=== PATIENT | female | born 2005 | race Caucasian/White ===

== ENCOUNTER 2025-06-02 19:46 | Emergency (ER) | payer BC, MEDICAID, SELFPAY ==
--- NOTE | ~2025-06-02 | US_ITS ---
EXAMINATION: US pelvic complete INDICATION: Pelvic pain Comparison:No prior studies for comparison. TECHNIQUE: Multiple transabdominal sonographic images of the pelvis performed. FINDINGS: The uterus measures 7.1 x 3.9 x 5.2 cm. The endometrial complex measures 4 mm. The right ovary measures 3 x 3 x 2.6 cm and the left ovary measures 3.8 x 2.5 x 2.3 cm. There are small follicles in each ovary. Normal doppler signal in both ovaries. There is no free fluid in the pelvis. There are no abnormal masses seen on either side. IMPRESSION: 1. Unremarkable pelvic ultrasound. Reviewed, dictated and finalized at location O.
[2025-06-02 20:07] VITALS: BP 115/71; PULSE 91; RESP 18; TEMP 36.7; O2SAT 100
[2025-06-02 20:36] LABS: BEDSIDEPREGUCG Negative (Negative)
[2025-06-02 20:47] LABS: Add Urine Microscopic? YES; Appearance Urine Clear (Clear); Glucose Urine UA Negative (Negative); Leukocyte Esterase Ur 1+ LEU/UL (Negative); Nitrate Urine Negative (Negative); Non Pathogenic Casts 0-2; Specific Grav Ur 1.027 (1.001-1.035)
--- NOTE | 2025-06-02 21:10 | PC.NURSE ---
Pt wheeled to triage desk by visitor stating that she is still bleeding heavily, fully saturating 3 pads since arriving 1.5 hrs ago. Will discuss with charge nurse to prioritize based off acuity.
--- NOTE | 2025-06-02 22:09 | ED_ITS ---
HPI - Female Genitourinary General Chief complaint: Vaginal Bleeding Stated complaint: Abnormal Vaginal bleeding Time Seen by Provider: 06/02/25 21:52 History of Present Illness HPI Narrative: This is a 19-year-old female with history of PCOS, endometriosis with heavy menstrual bleeding and presents to the ED for abdominal pain and vaginal bleeding. Patient states that she started her period about 5 or 6 hours ago and it was heavier than her usual period . She states the pain was worsened for episodes prompting her to come to the ED. She has required transfusions in the past most recently a year ago. Patient just moved here has not established with gynecology. Denies fevers, chills, nausea, vomiting, chest pain, shortness of breath. Related Data Allergies Allergy/AdvReac Type Severity Reaction Status Date / Time No Known Allergies Allergy Verified 06/02/25 23:12 Review of Systems 2 Review of Systems: Gen.: Denies fevers or chills Eyes: Denies eye pain or visual change ENT: Denies congestion Respiratory: Denies shortness of breath or cough CV: Denies chest pain or palpitations GI: As per HPI as per HPI Musculoskeletal: Denies back pain or muscle pain Neuro: Denies numbness, tingling, weakness or focal weakness Skin: Denies rash Except as documented, all other systems reviewed and negative Exam 2 Narrative: APPEARANCE: No acute distress, nontoxic, resting in bed EYES: EOMI HEENT: Normocephalic, atraumatic, OMM RESPIRATORY: No respiratory distress Clear to auscultation bilaterally with no rhonchi wheezing or rales. CARDIOVASCULAR: Regular rate and rhythm without murmurs rubs or gallops. ABDOMINAL: Soft, mild suprapubic tenderness to palpation MUSCULOSKELETAl: Moves all extremities. No clubbing, cyanosis or edema. NEURO: Awake and alert. Following commands, speech normal, no focal deficits SKIN:: Warm, dry. No rashes lesions or abrasions PSYCHIATRIC: Normal affect/mood, Course Vital Signs Vital signs: Vital Signs Temperature 98.0 F 06/02/25 20:07 Pulse Rate 91 06/02/25 20:07 Respiratory Rate 18 06/02/25 20:07 Blood Pressure 115/71 06/02/25 20:07 Pulse Oximetry 100 06/02/25 20:07 Oxygen Delivery Room Air 06/02/25 20:07 Temperature 97.9 F 06/02/25 23:51 Pulse Rate 68 06/02/25 23:51 Respiratory Rate 18 06/02/25 23:51 Blood Pressure 108/64 06/02/25 23:51 Pulse Oximetry 99 06/02/25 23:51 Oxygen Delivery Room Air 06/02/25 20:07 MDM - Female Genitourinary MDM Narrative Medical decision making narrative: 19-year-old female who presents to the ED for suprapubic abdominal pain with vaginal bleeding. Symptoms are consistent her prior dysmenorrhea due to PCOS and endometriosis. Abdomen was soft with mild suprapubic tenderness. She had a mild anemia 11.4, remaining labs are without significant abnormalities. Pelvic ultrasound was obtained and showed no acute process. UA consistent with her menstrual cycle. Patient was initially given Toradol with minimal improvement in her symptoms. She was subsequently given oxycodone and morphine with near resolution of her symptoms. She has not established with gynecology. So she will be given a referral to them and advised follow-up next week. Patient was agreeable to this plan. Given strict return precautions. Differential Diagnosis Differential diagnosis: Likely dysmenorrhea and other (anemia, UTI, miscarriage) Medical Records Attestation: I reviewed the patient's medical records. Lab Data Attestation: I reviewed the patient's lab results. 06/02/25 22:04 06/02/25 22:04 Labs: Lab Results 06/02/25 06/02/25 06/02/25 Range/Units 20:31 20:32 21:25 WBC (4.5-10.0) K/mm3 RBC (4.2-5.4) M/mm3 Hgb (12.0-15.0) g/dL Hct (37.0-47.0) % MCV (80-100) fl MCH (26-34) pg MCHC (32-36) g/dl RDW (11.5-14.5) % Plt Count (150-375) k/mm3 MPV (7.4-10.4) fl Immature Gran % (Auto) (0-0.5) % Neut % (Auto) (45.5-73.1) % Lymph % (Auto) (18.3-44.2) % [place] % (Auto) (2.6-8.5) % Eos % (Auto) (0-4.4) % Baso % (Auto) (0.2-1.2) % Lymph # (Auto) (0.9-3.2) K/mm3 [place] # (Auto) (0.1-0.6) K/mm3 Eos # (Auto) (0-0.3) K/mm3 Baso # (Auto) (0.0-0.1) K/mm3 Abs Immat Gran (auto) (0.00-0.031) K/mm3 Absolute Neuts (auto) (1.3-6.7) K/mm3 Absolute Nucleated RBC (0.0-0.012) K/mm3 Nucleated RBC % (0.0-0.2) % Sodium (137-145) mmol/L Potassium (3.4-5.0) mmol/L Chloride (98-107) mmol/L Carbon Dioxide (22-30) mmol/L Anion Gap (4-12) mmol/L BUN (7-17) mg/dL Creatinine (0.7-1.0) mg/dL Estim Creat Clear Calc Estimated GFR (59 - ) Glucose (65-110) mg/dL Calcium (8.4-10.2) mg/dL Total Bilirubin (0.2-1.3) mg/dL AST (14-36) U/L ALT (6-35) U/L Alkaline Phosphatase (38-126) U/L Total Protein (6.3-8.2) g/dL Albumin (3.5-5.1) g/dL Urine Color Yellow (Yellow) Urine Appearance Clear (Clear) Urine pH 6.0 (5.0-9.0) Ur Specific [place] 1.027 (1.001-1.035) Urine Protein 1+ H (Negative) mg/dL Urine Glucose (UA) Negative (Negative) mg/dL Urine Ketones Negative (Negative) mg/dL Ur Blood (Man) 3+ H (Negative) Urine Nitrate Negative (Negative) Urine Bilirubin Negative (Negative) Urine Urobilinogen 0.2 (<2.0) mg/dL Leukocyte Esterase Rfl 1+ H (Negative) MIKEY/UL Urine RBC >100 H (0-2) /hpf Urine WBC 6-10 H (0-3) /hpf Ur Squamous Epith Cells None seen (Few) /hpf Urine Bacteria Rare /hpf Urine Casts 0-2 POC Urine HCG, Qual Negative (Negative) Blood Type O Positive Antibody Screen Negative Screen TNP Baby's Blood Type Not Reportable Baby's ANABEL Not Reportable Doses of RhIg Required 0 06/02/25 Range/Units 22:04 WBC 10.4 H (4.5-10.0) K/mm3 RBC 4.03 L (4.2-5.4) M/mm3 Hgb 11.4 L (12.0-15.0) g/dL Hct 35.0 L (37.0-47.0) % MCV 86.8 (80-100) fl MCH 28.3 (26-34) pg MCHC 32.6 (32-36) g/dl RDW 11.9 (11.5-14.5) % Plt Count 331 (150-375) k/mm3 MPV 9.2 (7.4-10.4) fl Immature Gran % (Auto) 0.3 (0-0.5) % Neut % (Auto) 60.8 (45.5-73.1) % Lymph % (Auto) 30.5 (18.3-44.2) % [place] % (Auto) 7.5 (2.6-8.5) % Eos % (Auto) 0.5 (0-4.4) % Baso % (Auto) 0.4 (0.2-1.2) % Lymph # (Auto) 3.17 (0.9-3.2) K/mm3 [place] # (Auto) 0.8 H (0.1-0.6) K/mm3 Eos # (Auto) 0.1 (0-0.3) K/mm3 Baso # (Auto) 0.0 (0.0-0.1) K/mm3 Abs Immat Gran (auto) 0.03 (0.00-0.031) K/mm3 Absolute Neuts (auto) 6.3 (1.3-6.7) K/mm3 Absolute Nucleated RBC 0.000 (0.0-0.012) K/mm3 Nucleated RBC % 0.0 (0.0-0.2) % Sodium 136 L (137-145) mmol/L Potassium 3.5 (3.4-5.0) mmol/L Chloride 104 (98-107) mmol/L Carbon Dioxide 24 (22-30) mmol/L Anion Gap 8 (4-12) mmol/L BUN 9 (7-17) mg/dL Creatinine 0.67 L (0.7-1.0) mg/dL Estim Creat Clear Calc Not Reportable Estimated GFR > 60 (59 - ) Glucose 99 (65-110) mg/dL Calcium 9.4 (8.4-10.2) mg/dL Total Bilirubin 0.3 (0.2-1.3) mg/dL AST 34 (14-36) U/L ALT 23 (6-35) U/L Alkaline Phosphatase 72 (38-126) U/L Total Protein 7.4 (6.3-8.2) g/dL Albumin 4.2 (3.5-5.1) g/dL Urine Color (Yellow) Urine Appearance (Clear) Urine pH (5.0-9.0) Ur Specific [place] (1.001-1.035) Urine Protein (Negative) mg/dL Urine Glucose (UA) (Negative) mg/dL Urine Ketones (Negative) mg/dL Ur Blood (Man) (Negative) Urine Nitrate (Negative) Urine Bilirubin (Negative) Urine Urobilinogen (<2.0) mg/dL Leukocyte Esterase Rfl (Negative) MIKEY/UL Urine RBC (0-2) /hpf Urine WBC (0-3) /hpf Ur Squamous Epith Cells (Few) /hpf Urine Bacteria /hpf Urine Casts POC Urine HCG, Qual (Negative) Blood Type Antibody Screen Screen Baby's Blood Type Baby's ANABEL Doses of RhIg Required Discharge Plan Discharge Clinical Impression: Dysmenorrhea Patient Disposition: Home Condition: Stable Instructions: Antibiotic Form, Dysmenorrhea (ED) Additional Instructions: Follow-up with JUAN Castellanos, in the next week for re-evaluation. Continue monitor edema bleeding. Return to ED for any new or worsening symptoms. Patient Language: Luxembourger Follow-up/Referrals: PHYSICIAN,SLOT MACHINE FLOOR PERSON [Primary Care Provider, Internal Medicine] Charles Solis MD [Physician, ALUMNI RELATIONS COORDINATOR]
[2025-06-02] MEDS: KETOROLAC 15 MG/ML VIAL (*BKC) IV PUSH (22:13)
[2025-06-02 22:16] LABS: Hematocrit 35.0 % (37.0-47.0); Hemoglobin 11.4 g/dL (12.0-15.0); Immature Granulocyte Percent A 0.3 % (0-0.5); Lymphocytes Absolute Auto 3.17 K/mm3 (0.9-3.2); Mean Corpuscular HGB Conc 32.6 g/dl (32-36); Mean Corpuscular Hemoglobin 28.3 pg (26-34); Mean Corpuscular Volume 86.8 fl (80-100); Nucleated Red Blood Cells Absolute Auto 0.000 K/mm3 (0.0-0.012); Nucleated Red Blood Cells Perc 0.0 % (0.0-0.2); Platelet Count Result 331 k/mm3 (150-375); Red Blood Count 4.03 M/mm3 (4.2-5.4); White Blood Count 10.4 K/mm3 (4.5-10.0)
[2025-06-02 22:35] LABS: Alanine Aminotransferase 23 U/L (6-35); Albumin Level 4.2 g/dL (3.5-5.1); Alkaline Phosphatase 72 U/L (38-126); Anion Gap 8 mmol/L (4-12); Aspartate Amino Transferase 34 U/L (14-36); Bilirubin,Total 0.3 mg/dL (0.2-1.3); Blood Urea Nitrogen 9 mg/dL (7-17); Calcium 9.4 mg/dL (8.4-10.2); Carbon Dioxide 24 mmol/L (22-30); Chloride 104 mmol/L (98-107); Estimated Glomerular Filt Rate > 60; Glucose 99 mg/dL (65-110); Potassium 3.5 mmol/L (3.4-5.0); Sodium 136 mmol/L (137-145); Total Protein 7.4 g/dL (6.3-8.2)
[2025-06-02] MEDS: MORPHINE SULFATE (*CRX) 4 MG/ML INJ IV PUSH (23:12)
[2025-06-02] MEDS: oxyCODONE HCL (*CRX) 5 MG TAB IR PO (23:12)
[2025-06-02 23:51] VITALS: BP 108/64; PULSE 68; RESP 18; TEMP 36.6; O2SAT 99
== END 2025-06-02 23:52 | disposition home or self-care (01) ==
PROVIDERS: Physician Assistant; Emergency Provider Student in an Organized Health Care Education/Training Program
DX: N94.6 Dysmenorrhea, unspecified (principal); E28.2 Polycystic ovarian syndrome; N80.9 Endometriosis, unspecified
CPT/HCPCS: 36415; 76856; 80053; 81001; 81025; 85025; 85461; 86850; 86900; 86901; 87086; 96374; 96375; 99284; A9270; J1885; J2270

== ENCOUNTER 2025-08-14 19:02 | Emergency (ER) | payer OTHER, SELFPAY ==
--- OUTSIDE RECORDS SUMMARY | 2017-10-12 02:45 | XMS_ITS | Continuity of Care Document ---
Author Organization [id number] - [facility] Address [facility]0 [facility] [place] [address] Phone Care Team Providers Care Renal Nurse Name Role Phone Jurist Neel BRAUN Unavailable Unavailable Allergies, Adverse Reactions, Alerts Substance Reaction Status Criticality No Known Allergies Active No Inform ation Medications Medication Instructions Dosage Effective Dates (start - stop) Status Comments Risperdal 1 mg tablet - Active Concerta 36 mg tablet,extended release - Active Intuniv ER 4 mg tablet,extended release - Active Prozac 10 mg capsule - Active Procedures Procedure Date OFFICE/OUTPT EM EST EXP PROB FOCUS/LOW 1 5 MINS XRAY KNEE UNILATERAL 3 VIEWS XRAY KNEE UNILATERAL 3 VIEWS OFFICE/OUTPT EM NEW DETAILED/LOW 30 MINS Advance Directives Directive Yes / No Effective Date File Name No Information Encounters Encounter Description Practice Location Reason(s) For Visit Diagnoses Date Provider Providers Copied on Encounter OFFICE/OUTPT EM EST EXP PROB FOCUS/LOW 15 MINS [id number] - [facility], [address] [facility] [facility] [place], [id number], [place] tel:[phone] [facility] right knee pain (chief complaint) Contusion of right knee, initial encounter 8 Jurist Shaikh. [address] [place], [id number]. tel:[phone] Referring Provider: Melissa Mendez, [address], [place], [address]. tel:[phone] OFFICE/OUTPT EM NEW DETAILED/LOW 30 MINS [id number] - [facility], [address] [facility] , [place], [place], [id number], tel:[phone] [facility] right knee pain (chief complaint) left knee pain (chief complaint) Right knee pain, unspecified chronicitySp rain of left knee, unspecified ligament, initial encounter Jurist Shaikh. [address] , [place], [place], [id number]. tel:[phone] Referring Provider: Rasta Boo, [address], [place], [address]. tel:[phone] Family History Family Member Type Diagnosis Age At Onset Problem (finding) Family history of asthm a Payers Payer name Insurance type Covered republican ID Authoriza tion(s) [facility] ([facility]) [id number] Social History Type Description Quantity Date Captured Comments Alcohol Use Details No Caffeine Use Details Unknown Tobacco Use Status Never smoked tobacco 2017 Smoking Status Never smoker Non-Smoking Tobacco Use Details : No Details Available : No Details Available Sex Female Chief Complaint And Reason For Visit From encounter dated '10/12/2017 08:45'. right knee pain (chief complaint). Description: Ms Miles is a 11 year 11 month old female who complains of right knee pain. She presents with pain and instability on the right side. She states that the symptoms have been acute traumatic and began 1 day ago. She indicates the injury occurred at school. Cheri states that the symptoms began as the result of twisting. The problem is unchanged. The pain is described as discomforting. The symptoms occur continuously. She also reports additional painin the posterior aspect on the right side. The symptoms are aggravated by daily activities. In addition to right knee pain the patient is also experiencing difficulty bending and pain. Patient statesshe was doing better folllwing last vist. Yesterday she was playing a game in PE and her friend jumped into her twisting her right knee. She felt and heard a pop. Unable to put full weight on that leg as it feels unstable. Reason For Referral Reason For Referral No Information Plan Of Treatment Date Type Action Status Patient Education Bruises in Hammad ns: Care Instructions completed Patient Education Knee Sprain in Children: Care Instruct completed Future Order: Radiology Order XR AY KNEE UNILATERAL 3 VIEWS RT knee ([id number]), Body Site: RT, Ordered on: Ordered History Of Present Illness Encounter Date Complaint History Of Prese nt Illness right knee pain Ms Miles is a 11 year 11 month old female who complains of right knee pain. She presents with pain and instability on the right side. She states that the symptoms have been acute traumatic and began 1 day ago. She indicates the injury occurred at school. Cheri states that the symptoms began as the result of twisting. The problem is unchanged. The pain is described as discomforting. The symptoms occur continuously. She also reports additional pain in the posterior aspect on the right side. The symptoms are aggravated by daily activities. In addition to right knee pain the patient is also experiencing difficulty bending and pain. Patient states she was doing better folllwing last vist. Yesterday she was playing a game in PE and her friend jumped into her twisting her right knee. She felt and heard a pop. Unable to put full weight on that leg as it feels unstable. right knee pain Cheri Miles is a 11 year 11 month old female. She presents with pain, weakness and decreased rom on the right side. She states that the symptoms have been chronic non-traumatic. She has non traumatic injury of right knee and minimal treatment. She has a brace that she wears most of the time now. She states there are xrays on file of her right knee as well. She has no other studies of her right knee. She has history of PTSD due to family problems in the past. The symptoms occur intermittently. The problem is fluctuating. left knee pain Cheri Miles is a 11 year 11 month old female. She presents with pain and weakness on the left side. She states that the symptoms have been acute traumatic and began on 09/15/2017. She indicates the injury occurred during PE. Patient was in PE when she had a ball hit her left knee while she was in the process of kicking another ball, this caused her left knee to hyperextend. She had increased swelling in left knee and is on crutches today. I asked her to straighten her left knee but she moved her ankle more than she allowed to move her left knee. Cheri states that the symptoms began as the result of hyperextension. Functional Status Date Functional Assessmen t No Information Instructions Date Instruction Additional Infor mation No Information Assessments Type Assessment Date No Information Patient Care Teams Name Effective Dates (start - stop) Status Members No Information
--- OUTSIDE RECORDS SUMMARY | 2017-10-12 02:45 | XMS_ITS | Continuity of Care Document ---
Author Organization [id number] - [facility] Address [facility]0 [facility] [place] [address] Phone Care Team Providers Care Juvenile Probation Officer Name Role Phone Jurist Neel BRAUN Unavailable [...] EM EST EXP PROB FOCUS/LOW 15 MINS [id number] - [facility], [address] [facility] [place], [id number], [place] tel:[phone] [facility] right knee pain (chief complaint) Contusion of right knee, initial encounter 8 Jurist Shaikh. [address] [place], [id number]. tel:[phone] Referring Provider: Melissa Mendez, [address], [place], [address]. tel:[phone] OFFICE/OUTPT EM NEW DETAILED/LOW 30 MINS [id number] - [facility], [address] [facility] [place], [place], [id number], tel:[phone] [facility] right knee pain (chief complaint) left knee pain (chief complaint) Right knee pain, unspecified chronicitySp rain of left knee, unspecified ligament, initial encounter Jurist Shaikh. [address] , [place], [place], [id number]. tel:[phone] Referring Provider: Rasta Boo, [address], [place], [address]. tel:[phone] Family History Family Member Type Diagnosis Age At Onset Problem (finding) Family history of asthm a Payers Payer name Insurance type Covered constitution party ID Authoriza tion(s) [facility] ([facility]) [id number] Social History Type Description Quantity Date Captured [...] AY KNEE UNILATERAL 3 VIEWS RT knee ([id number]), Body Site: RT, Ordered on: Ordered History [...]
--- OUTSIDE RECORDS SUMMARY | 2017-10-12 02:45 | XMS_ITS | Continuity of Care Document ---
Author Organization [id number] - [facility] Address [facility]0 [facility] [place] [address] Phone Care Team Providers Care Handle Rounder Operator Name Role Phone Jurist Neel BRAUN Unavailable [...] EM EST EXP PROB FOCUS/LOW 15 MINS [id number] - [facility], [address] [facility] [place], [id number], [place] tel:[phone] [facility] right knee pain (chief complaint) Contusion of right knee, initial encounter 8 Jurist Shaikh. [address] [place], [id number]. tel:[phone] Referring Provider: Melissa Mendez, [address], [place], [address]. tel:[phone] OFFICE/OUTPT EM NEW DETAILED/LOW 30 MINS [id number] - [facility], [address] , [place], [place], [id number], tel:[phone] [facility] right knee pain (chief complaint) left knee pain (chief complaint) Right knee pain, unspecified chronicitySp rain of left knee, unspecified ligament, initial encounter Jurist Shaikh. [address] , [place], [place], [id number]. tel:[phone] Referring Provider: Rasta Boo, [address], [place], [address]. tel:[phone] Family History Family Member Type Diagnosis Age At Onset Problem (finding) Family history of asthm a Payers Payer name Insurance type Covered constitution party ID Authoriza tion(s) [facility] ([facility]) [id number] Social History Type Description Quantity Date Captured [...] AY KNEE UNILATERAL 3 VIEWS RT knee ([id number]), Body Site: RT, Ordered on: Ordered History [...]
--- OUTSIDE RECORDS SUMMARY | 2017-10-12 02:45 | XMS_ITS | Continuity of Care Document ---
Author Organization [id number] - [facility] Address [facility]0 [facility] [place] [address] Phone Care Team Providers Care Basting Machine Operator Name Role Phone Jurist Neel BRAUN [...] EM EST EXP PROB FOCUS/LOW 15 MINS [id number] - [facility], [address] [facility] [place], [id number], [place] tel:[phone] [facility] right knee pain (chief complaint) Contusion of right knee, initial encounter 8 Jurist Shaikh. [address] [place], [id number]. tel:[phone] Referring Provider: Melissa Mendez, [address], [place], [address]. tel:[phone] OFFICE/OUTPT EM NEW DETAILED/LOW 30 MINS [id number] - [facility], [address] , [place], [place], [id number], tel:[phone] [facility] right knee pain (chief complaint) left knee pain (chief complaint) Right knee pain, unspecified chronicitySp rain of left knee, unspecified ligament, initial encounter Jurist Shaikh. [address] , [place], [place], [id number]. tel:[phone] Referring Provider: Rasta Boo, [address], [place], [address]. tel:[phone] Family History Family Member Type Diagnosis Age At Onset Problem (finding) Family history of asthm a Payers Payer name Insurance type Covered republican ID Authoriza tion(s) [facility] ([facility]) [id number] Social History Type Description Quantity Date Captured [...] AY KNEE UNILATERAL 3 VIEWS RT knee ([id number]), Body Site: RT, Ordered on: Ordered History [...] on that leg as it feels unstable. left knee pain Cheri Miles is a [...] symptoms began as the result of hyperextension. right knee pain Cheri Miles is a [...] symptoms occur intermittently. The problem is fluctuating. Functional Status Date Functional Assessmen t No Information Instructions Date Instruction Additional Infor mation No Information Assessments Type Assessment Date No Information Patient Care Teams Name Effective Dates (start - stop) Status Members No Information
--- OUTSIDE RECORDS SUMMARY | 2017-10-12 02:45 | XMS_ITS | Continuity of Care Document ---
Author Organization [id number] - [facility] Address [facility]0 [facility] [place] [address] Phone Care Team Providers Care Medical Sales Representative Name Role Phone Jurist Neel BRAUN Unavailable [...] EM EST EXP PROB FOCUS/LOW 15 MINS [id number] - [facility], [address] [facility] [place], [id number], [place] tel:[phone] [facility] right knee pain (chief complaint) Contusion of right knee, initial encounter 8 Jurist Shaikh. [address] [place], [id number]. tel:[phone] Referring Provider: Melissa Mendez, [address], [place], [address]. tel:[phone] OFFICE/OUTPT EM NEW DETAILED/LOW 30 MINS [id number] - [facility], [address] [facility] [place], [place], [id number], tel:[phone] [facility] right knee pain (chief complaint) left knee pain (chief complaint) Right knee pain, unspecified chronicitySp rain of left knee, unspecified ligament, initial encounter Jurist Shaikh. [address] , [place], [place], [address]. tel:[phone] Referring Provider: Rasta Boo, [address], [place], [address]. tel:[phone] Family History Family Member Type Diagnosis Age At Onset Problem (finding) Family history of asthm a Payers Payer name Insurance type Covered green party ID Authoriza tion(s) [facility] ([facility]) [id number] Social History Type Description Quantity Date Captured [...] AY KNEE UNILATERAL 3 VIEWS RT knee ([id number]), Body Site: RT, Ordered on: Ordered History [...]
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
--- NOTE | ~2025-08-14 | XR_ITS ---
XR femur RT min 2V INDICATION: pain COMPARISON: None FINDINGS: Two views of the right femur demonstrate no acute fracture or dislocation. IMPRESSION: No acute fracture or dislocation. Reviewed, dictated and finalized at location S. REMODELER REPAIRER
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
[2025-08-14 19:11] VITALS: BP 147/104; PULSE 84; RESP 18; TEMP 36.4; O2SAT 100
[2025-08-14 20:22] LABS: BEDSIDEPREGUCG Negative (Negative)
--- OUTSIDE RECORDS SUMMARY | 2025-08-14 20:36 | XMS_ITS | Clinical Summary ---
Author Organization [facility] [address] Address [address] [place] [address] Phone Care Team Providers Care Assistant Professor Of Geography Name Role Phone No, Physician Primary Care Provider [phone] Allergies No known active allergies Medications No known medications Social History Tobacco Use Types Packs/Day Years Used Date Smoking Tobacco: Never Assessed Personal Safety Answer Date Recorded Have you ever been in or are you currently in a harmful physical or emotional relationship or is someone making you feel afraid or unsafe? Denies 09/22/2024 Comments Unknown Sex and Gender Information Value Date Recorded Sex Assigned at Not on file Legal Sex Female 2:26 PM CDT Gender Identity Not on file Sexual Orientation Not on file Last Filed Vital Signs Vital Sign Reading Time Taken Comments Blood Pressure 133/73 09/22/2024 12:20 AM PLANOGRAPH OPERATOR Pulse 110 09/22/2024 12:20 AM PLANOGRAPH OPERATOR Temperature 36.9 C (98.4 F) 09/22/2024 1:36 AM PLANOGRAPH OPERATOR Respiratory Rate 22 09/22/2024 12:20 AM PLANOGRAPH OPERATOR Oxygen Saturation 100% 09/22/2024 12:20 AM PLANOGRAPH OPERATOR Inhaled Oxygen Concentration - - Weight 63.5 kg (140 lb) 09/22/2024 12:20 AM PLANOGRAPH OPERATOR Height 149.9 cm (4' 11) 09/22/2024 12:20 AM PLANOGRAPH OPERATOR Body Mass Index 28.28 09/22/2024 12:20 AM PLANOGRAPH OPERATOR Plan of Treatment Health Maintenance Due Date Last Done Comments Cervical Cancer Screening 2003 Depression Screening 2003 Hepatitis C Screening 2003 DTaP/Tdap/Td Vaccine (1 - Tdap) 2014 Varicella Vaccines (1 of 2 - 13+ 2-dose series) 2016 HPV Vaccines (1 - 3-dose series) 2018 Meningococcal B Vaccine (1 o f 2 - Standard) 2019 Hepatitis B Screening 2021 Regular Well Visit/Exam 18-64 2021 Influenza Vaccine (#1) 2025 Meningococcal Vaccine Aged Out No balwinder sana eligible based on patient's age to complete this topic Pneumococcal vaccine <65 Aged Out No longer eligible based on patient's age to complete this topic Insurance [employer] [place] Care Teams Assistant Professor Of Geography Relationship Specialty Start Date End Date No, Physician PCP - General 06/15/22
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
--- OUTSIDE RECORDS SUMMARY | 2025-08-14 20:36 | XMS_ITS | Clinical Summary ---
Author Organization [facility] Address [address] [address] [place] [address] Phone Care Team Providers Care Tutor Coordinator Name Role Phone Unavailable Primary Care Provider Unavailabl e Allergies No known active allergies Medications albuterol sulfate HFA 90 mcg/actuation aerosol inhaler Take 2 Puffs by inhalation. 3 Active budesonide-formot Purnima (SYMBICORT) 160-4.5 mcg/actuation HFA Aerosol Inhaler Take 2 Puffs by inhalation 2 times daily. 3 Active FLUoxetine (PROzac) 20 mg capsule TAKE 1 CAPSULE BY MOUTH EVERY NIGHT 3 Active traZODone (DESYREL) 100 mg tablet Take 100 mg by mouth daily at bedtime. 3 Active tretinoin (RETIN-A) 0.01 % Gel Apply to affected area. 3 Active Benzoyl Peroxide 2.5 % Gel Apply to affected area 2 times daily. 3 Active ketorolac tromethamine (TORADOL) 10 mg tablet Take 1 Tablet (10 mg) by mouth every 6 hours as needed for Pain. 30 Tablet 3 Active Blisovi Fe 10/20, 28, 1 mg-20 mcg (21)/75 mg (7) tablet Take 1 Tablet by mouth daily. Active Active Problems No known active problems Social History Tobacco Use Types Packs/Day Years Used Date Smoking Tobacco: Never Smokeless Tobacco: Never Tobacco Cessation:Counseling Given: Not Answered Alcohol Use Standard Drinks/Week Comments Never 0 (1 standard drink = 0.6 oz pur e alcohol) Adolescent Education Answer Date Record ed Getting School Help Needed Not on file 05/08 Feeling Safe Answer Date Recorded Are you in a relationship wi th someone who hurts you emotionally and/or physically? No 03/22/2023 Comments No Sex and Gender Information Value Date Recorded Sex Assigned at Not on file Legal Sex Female 9:25 PM CDT Gender Identity Not on file Sexual Orientation Not on file Last Filed Vital Signs Vital Sign Reading Time Taken Comments Blood Pressure 118/62 03/27/2023 2:32 PM CDT Pulse 76 03/23/2023 5:25 AM CDT Temperature 37.2 C (98.9 F) 03/22/2023 9:32 PM CDT Respiratory Rate 15 03/23/2023 5:25 AM CDT Oxygen Saturation 98% 03/23/2023 5:25 AM CDT Inhaled Oxygen Concentration - - Weight 66.7 kg (147 lb) 03/27/2023 2:32 PM CDT Height 149.9 cm (4' 11) 03/27/2023 2:32 PM CDT Body Mass Index 29.69 03/27/2023 2:32 PM CDT Plan of Treatment Health Maintenance Due Date Last Done Comments CHLAMYDIA SCREENING (ANNUAL) 11-24 YEARS 2014 HPV VACCINES (1 - 3-dose series) 2018 DTAP/TDAP/TD VACCINES (1 - Tdap) 2022 HEPATITIS B VACCINES (1 of 3 - 19+ 3-dose series) 10/01 CERVICAL CANCER SCREENING 2024 HPV/Cotest (21-29) 2024 PAP SMEAR 2024 INFLUENZA VACCINE (#1) 2025 Insurance [place]
--- OUTSIDE RECORDS SUMMARY | 2025-08-14 20:36 | XMS_ITS | Encounter Summary ---
Author Organization [facility] Address [address] [place] [address] Care Team Providers Care Lna Name Role Phone None, Physician Primary Care Provider Unavailabl e Encounter Details Date Type Department Care Team (Latest Contact Info) Description 08/14/2025 Travel Social History Tobacco Use Types Packs/Day Years Used Date Smoking Tobacco: Never Assessed Comments Unknown Sex and Gender Information Value Date Recorded Sex Assigned at Not on file Legal Sex Female 4:13 PM SHANK CUTTER Gender Identity Not on file Sexual Orientation Not on file documented as of this encounter Functional Status documented as of this encounter Plan of Treatment Not on file documented as of this encounter Visit Diagnoses Not on filedocumented in this encounter Care Teams Lna Relationship Specialty Start Date End Date None, Physician PCP - General 08/14/25 documented as of this encounter
--- OUTSIDE RECORDS SUMMARY | 2025-08-14 20:42 | XMS_ITS | Encounter Summary ---
Author Organization [facility] Address [address] [place] [address] Phone Care Team Providers Care Hospital Admitting Clerk Name Role Phone Gabrielle Mercado APRN, CNP Primary Care P rovider Reason for Visit * Reason Comments Medication Refill Encounter Details Date Type Department Care Team (Late st Contact Info) Description 04/22/2023 Refill [facility] - Primary Care - [place] [place] [address] Gabrielle Mercado APRN, CNP [address] [place] [address] Medication Refill Social History Tobacco Use Types Packs/Day Years Used Date Smoking Tobacco: Never Smokeless Tobacco: Never Alcohol Use Standard Drinks/Week Comments Yes 3 (1 standard drink = 0.6 oz pur e alcohol) kaay PHQ-2 Answer Date Recorded Total Score - Questions 1-9 21 03/03 Education Answer Date Recorded What is the highest level of school you have completed or the highest degree you have received? GED or equivalent 10/2022 Sexually Active Control Partners Comments Not Currently Female, Male Comments No Sex and Gender Information Value Date Recorded Sex Assigned at Not on file Legal Sex Female 12:07 PM CDT Gender Identity Not on file Sexual Orientation Not on file documented as of this encounter Miscellaneous Notes * Telephone Encounter - Arlene Souza RN - 04/23/2023 8:52 AM CDT Duplicate request. documented in this encounter Plan of Treatment Not on file documented as of this encounter Goals Goal Patient Goal Type Associated Problems Recent Progress Patient-Stated? Author improve mood Behavioral Health On track(2021 2:23 PM CDT) No Mily Santana LCSW Note: Goal/Objective: Increase number of positive mood experiences. Anticipated Time Frame for Goal Completion: 8 months Goal Reviewed with: patient Readiness to change: Thinking about making a change Department associated with goal: [facility] Steps to achieve goal: 1. will identify, at least three, triggers to distressing mood change. 2. will identify, at least two ways/skills to prevent depressed (or other problematic) mood. 3. will identify, at least two ways/skills to cope with depressed (or other problematic) mood. 4. will implement one prevention and one coping skill and evaluate effectiveness 5. Will attend individual and/or group therapy at least 1x/month at least 6 sessions need help sleeping Behavioral Health On track(2021 2:23 PM CDT) Yes Mily Santana LCSW Note: Get psychiatrist support documented as of this encounter Visit Diagnoses Diagnosis Mild intermittent asthma without complication Unspecified asthma documented in this encounter Additional Health Concerns Assessment Noted Time PHQ-9 Depression Total Score: 21 022 11:00 AM CDT documented as of this encounter Care Teams Hospital Admitting Clerk Relationship Specialty Start Date End Date Gabrielle Mercado APRN, PAPER FEEDER [address] [place] [address] PCP - General Advanced Practice Nurse 03/30/22 documented as of this encounter
--- OUTSIDE RECORDS SUMMARY | 2025-08-14 20:42 | XMS_ITS | Encounter Summary ---
Author Organization [facility] Address [address] [place] [address] Phone Care Team Providers Care Training Program Assistant Name Role Phone Gabrielle Mercado APRN, CNP Primary Care P savannah Reason for Visit * Reason Comments Medication Refill Encounter Details Date Type Department Care Team (Late st Contact Info) Description 01/31/2023 Refill [facility] - Primary Care - [place] [address] [place] [address] Yohan Menendez PAC [address] [place] [address] Medication Refill Social History Tobacco Use Types Packs/Day Years Used Date Smoking Tobacco: Never Smokeless Tobacco: Never Alcohol Use Standard Drinks/Week Comments Yes 3 (1 standard drink = 0.6 oz pur e alcohol) kaya PHQ-2 Answer Date Recorded Total Score - [...] on file Sexual Orientation Not on file COVID-19 Exposure Response Date Recorded In the last 10 days, have mathew u been in contact with someone who was confirmed or suspected to have Coronavirus/COVID-19? No / Unsure 01/10/2023 11:17 AM CDT documented as of this encounter Miscellaneous Notes * Telephone Encounter - Yohan Menendez PAC - 01/31/2023 5:22 PM CDT Rx request approved. * Telephone Encounter - Arlene Souza RN - 01/31/2023 4:15 PM CDT Medication failed the protocol, provider to review and approve the medication order if appropriate. Requested Prescriptions Pending Prescriptions Disp Refills FLUoxetine (PROzac) 20 MG Capsule [Pharmacy Med Name: FLUOXETINE 20MG CAPSULES] 90 Capsule 0 Sig: TAKE 1 CAPSULE BY MOUTH EVERY NIGHT SSRI (6 Month Refill Only) Protocol Failed - 01/31/2023 3:14 PM Failed - Has an encounter in the past 6 months with a depression, anxiety, adjustment disorder, OCD, or PTSD visit diagnosis Passed - No test in the past 12 months or most recent test was negative Passed - No active on record Passed - Visit with relevant provider in past 6 months or upcoming 90 days Recent Visits Date Type Provider Dept 01/10/23 Telemedicine Gabrielle Mercado APRN, [facility] [address] 11/01/22 Telemedicine Gabrielle Mercado APRN, [facility] [address] Showing recent visits within past 182 days and meeting all other requirements Future Appointments Date Type Provider Dept 03/30/23 Appointment Gabrielle Mercado APRN, [facility] [address] [address] Showing future appointments within next 90 days and meeting all other requirements Passed - Patient has established therapy with SSRI for at least 6 months documented in this encounter Plan of Treatment [...] making a change Department associated with goal: [facility] Steps to achieve goal: [...] as of this encounter Visit Diagnoses Diagnosis Moderate episode of recurrent major depressive disorder PTSD (post-traumatic stress disorder) Posttraumatic stress disorder Night terrors Sleep arousal disorder documented in this encounter Additional Health Concerns Assessment Noted Time PHQ-9 Depression Total Score: 21 022 11:00 AM CDT documented as of this encounter Care Teams Training Program Assistant Relationship Specialty Start Date End Date Gabrielle Mercado APRN, AIRCRAFT MAGNETO MECHANIC [address] [place] [address] PCP - General Advanced Practice Nurse 03/30/22 documented as of this encounter
--- OUTSIDE RECORDS SUMMARY | 2025-08-14 20:42 | XMS_ITS | Clinical Summary ---
Author Organization [facility] Address [address] [place] [phone] Phone Care Team Providers Care Teachers' Aide Name Role Phone Gabrielle Mercado APRN, MANDY Primary Care P rovider Allergies No known active allergies Medications albuterol 108 (90 Base) MCG/ACT Aerosol SolutionIndicatio ns:Mild intermittent asthma without complication take 2 Puffs by inhalation every 4 hours as needed for Wheezing. 18 g 3 Active Benzoyl Peroxide 2.5 % GelIndications:Ac ne vulgaris Apply 2 times daily. Apply thin layer to affected areas as directed. 60 g 3 3 Active tretinoin (RETIN-A) 0.01 % GelIndications:Ac ne vulgaris Apply every evening. Apply to affected areas as directed. 45 g 3 3 Active Symbicort 160-4.5 MCG/ACT AerosolIndication s:Mild intermittent asthma without complication INHALE 2 PUFFS BY MOUTH TWICE DAILY 30.6 g 3 Active risperiDONE (RISPERDAL) 0.5 MG TabletIndications :Moderate episode of recurrent major depressive disorder,Night terrors,Borderlin e personality disorder in adolescent,PTSD (post-traumatic stress disorder) Take 1 Tablet by mouth nightly. 90 Tablet 1 4 Active Active Problems Problem Noted Date Diagnosed Date Borderline personality disorder in adolescent PTSD (post-traumatic stress disorder) 05/29/2022 Family History Medical History Relation Name Comments Anxiety disorder Father Bipolar Disorder Father Cancer Father Depression Father Mental Disorder, Other Father Schizophrenia Father Bipolar Disorder Mother Mental Disorder, Other Mother Cancer Paternal Grandmother Relation Name Status Comments Father Alive Mother Alive Paternal Grandmother Social History Tobacco Use Types Packs/Day Years Used Date Smoking Tobacco: Never Smokeless Tobacco: Never Tobacco Cessation:Counseling Given: Not Answered Alcohol Use Standard Drinks/Week Comments Yes 3 (1 standard drink = 0.6 oz pur e alcohol) [employer] [facility] Utilities Answer Date Recorded In the past 12 months has [employer]Change electric, gas, oil, or water company threatened to shut off services in your home? No 11/19/2023 Social Connection and Isolation Panel Answer Date Recorded In a typical week, how many times do you talk on the phone with family, friends, or neighbors? Once a week 11/19/2023 How often do you get together with friends or re latives? Once a week 11/19/2023 How often do you attend denominational or rastafarian serv ices? Never 11/19/2023 Do you belong to any clubs o r organizations such as denominational groups, unions, fraternal or athletic groups, or school groups? No 11/19/2023 How often do you attend meet ings of the clubs or organizations you belong to? Never 11/19/2023 Are you , , di vorced, , never , or living with a partner? Never 11/19/2023 AUDIT-C Answer Date Recorded Q1: How often do you have a drink containing alc ohol? Monthly or less 11/19/2023 Q2: How many drinks containi ng alcohol do you have on a typical day when you are drinking? 3 or 4 11/19/2023 Q3: How often do you have si x or more drinks on one occasion? Less than monthly 11/19/2023 Overall Financial Resource Strain (CARDIA) Answe r Date Recorded How hard is it for you to pa y for the very basics like food, housing, medical care, and heating? Hard 11/19/2023 PHQ-2 Answer Date Recorded Total Score - Questions 1-9 21 03/03 [facility] - Occupational Stress Questionnaire Answer Date Recorded Do you feel stress - tense, restless, nervous, or anxious, or unable to sleep at night because your mind is troubled all the time - these days? Very much 11/19/2023 Exercise Vital Sign Answer Date Recorde d On average, how many days pe r week do you engage in moderate to strenuous exercise (like a brisk walk)? 4 days 11/19/2023 On average, how many minutes do you engage in exercise at this level? 90 min 11/19/2023 Hunger Vital Sign Answer Date Recorded Within the past 12 months, y ou worried that your food would run out before you got the money to buy more. Often true 11/19/19 24 Within the past 12 months, t he food you bought just didn't last and you didn't have money to get more. Often true 11/19/2023 PRAPARE - Transportation Answer Date Re corded In the past 12 months, has l ack of transportation kept you from medical appointments or from getting medications? No 11/01 In the past 12 months, has l ack of transportation kept you from meetings, work, or from getting things needed for daily living? No 11/19/2023 Housing Stability Vital Sign Answer Chris e Recorded In the last 12 months, was t here a time when you were not able to pay the mortgage or rent on time? Yes 11/19/2023 In the last 12 months, how many places have you lived? 3 11/19/2023 In the last 12 months, was t here a time when you did not have a steady place to sleep or slept in a snf (including now)? Yes 11/19/2023 Education Answer Date Recorded What is the [...] Sign Reading Time Taken Comments Blood Pressure 123/74 02/05/2025 7:30 PM CDT Pulse 44 02/05/2025 7:30 PM CDT Temperature 36.4 C (97.6 F) 02/05/2025 4:13 PM CDT Respiratory Rate 15 02/05/2025 4:13 PM CDT Oxygen Saturation 100% 02/05/2025 7:30 PM CDT Inhaled Oxygen Concentration - - Weight 61.2 kg (135 lb) 02/05/2025 4:13 PM CDT Height 157.5 cm (5' 2) 02/05/2025 4:13 PM CDT Body Mass Index 24.69 02/05/2025 4:13 PM CDT Plan of Treatment Health Maintenance Due Date Last Done Comments Hepatitis C Virus (HCV) Screening 2003 TdaP Immunization 2003 Human Papillomavirus (HPV) Immunization (1 - 3-dose series) 2018 Meningococcal B Immunization (1 of 2 - Standard) 2019 Hepatitis B Immunization (1 of 3 - 19+ 3-dose series) 2022 Pap Smear 2024 Influenza Immunization (#1) 2025 SARS-COV-2 Immunization ( - 2024- season) 2025 Respiratory Syncytial Virus (RSV) Immunization (Adult) (1 - 1-dose 75+ series) 2078 Meningococcal Immunization (ACWY) Aged Out No longer eligible based on patient's age to complete this topic Pneumococcal Immunization Combined Aged Out No longer eligible based on patient's age to complete this topic Rotavirus Immunization Aged Out No lo nger eligible based on patient's age to complete this topic Goals Goal Patient Goal Type Associated Problems Recent Progress Patient-Stated? Author improve mood Behavioral Health On track(2021 2:23 PM CDT) No Mily Santana LCSW Note: Goal/Objective: Increase number of positive mood experiences. Anticipated Time Frame for Goal Completion: 8 months Goal Reviewed with: patient Readiness to change: Thinking about making a change Department associated with goal: [facility] Steps to [...] Mily Santana LCSW Note: Get psychiatrist support Insurance [place] Care Teams Teachers' Aide Relationship Specialty Start Date End Date Gabrielle Mercado APRN, AREA SECRETARY [address] [place], [place] [address] PCP - General Advanced Practice Nurse 03/30/22
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
[2025-08-14] MEDS: ONDANSETRON INJ 4 MG/2 ML VIAL IV PUSH (21:23)
[2025-08-14] MEDS: MORPHINE SULFATE (*CRX) 4 MG/ML INJ IV PUSH (21:23)
[2025-08-14 21:25] LABS: Hematocrit 35.6 % (37.0-47.0); Hemoglobin 11.6 g/dL (12.0-15.0); Immature Granulocyte Percent A 0.2 % (0-0.5); Lymphocytes Absolute Auto 2.90 K/mm3 (0.9-3.2); Mean Corpuscular HGB Conc 32.6 g/dl (32-36); Mean Corpuscular Hemoglobin 28.4 pg (26-34); Mean Corpuscular Volume 87.0 fl (80-100); Nucleated Red Blood Cells Absolute Auto 0.000 K/mm3 (0.0-0.012); Nucleated Red Blood Cells Perc 0.0 % (0.0-0.2); Platelet Count Result 301 k/mm3 (150-375); Red Blood Count 4.09 M/mm3 (4.2-5.4); White Blood Count 9.6 K/mm3 (4.5-10.0)
[2025-08-14 21:36] LABS: Alanine Aminotransferase 16 U/L (6-35); Albumin Level 4.7 g/dL (3.5-5.1); Alkaline Phosphatase 76 U/L (38-126); Anion Gap 7 mmol/L (4-12); Aspartate Amino Transferase 32 U/L (14-36); Bilirubin,Total 0.5 mg/dL (0.2-1.3); Blood Urea Nitrogen 13 mg/dL (7-17); Calcium 9.6 mg/dL (8.4-10.2); Carbon Dioxide 25 mmol/L (22-30); Chloride 104 mmol/L (98-107); Estimated Glomerular Filt Rate > 60; Glucose 85 mg/dL (65-110); Potassium 4.1 mmol/L (3.4-5.0); Sodium 136 mmol/L (137-145); Total Protein 8.0 g/dL (6.3-8.2)
[2025-08-14 21:39] LABS: Add Urine Microscopic? YES; Appearance Urine Cloudy (Clear); Glucose Urine UA Negative (Negative); Leukocyte Esterase Ur 1+ LEU/UL (Negative); Need Manual Microscopic Reviewed; Nitrate Urine Positive (Negative); Non Pathogenic Casts 0-2; Specific Grav Ur 1.032 (1.001-1.035)
[2025-08-14 21:44] LABS: Cannabinoid Screen Urine Negative (Negative)
[2025-08-14 22:07] VITALS: BP 107/63; PULSE 77; RESP 13; O2SAT 97
[2025-08-14] MEDS: KETOROLAC 15 MG/ML VIAL (*BKC) IV PUSH (23:11)
[2025-08-14] MEDS: TIZANIDINE HCL 2 MG TABLET PO (23:26)
[2025-08-14] MEDS: HYDROcodone/acetaminophen (*CRX) 5-325 MG TABLET 1 TAB PO (23:27)
--- NOTE | 2025-08-14 23:30 | PC.NURSE ---
DARRICK MANAGEMENT ANALYST-C marciano, crutches to pt.
[2025-08-15 00:36] VITALS: BP 116/79; PULSE 82; RESP 12; O2SAT 97
== END 2025-08-14 23:47 | disposition home or self-care (01) ==
PROVIDERS: Emergency Medicine; Emergency Provider Registered Nurse
DX: S06.0X1A Concussion with loss of consciousness of 30 minutes or less, initial encounter (principal); S27.321A Contusion of lung, unilateral, initial encounter; S79.911A Unspecified injury of right hip, initial encounter; M54.9 Dorsalgia, unspecified; G89.29 Other chronic pain; G40.909 Epilepsy, unspecified, not intractable, without status epilepticus; N80.9 Endometriosis, unspecified; V43.53XA Car driver injured in collision with pick-up truck in traffic accident, initial encounter
CPT/HCPCS: 36415; 70450; 71260; 72125; 73552; 74177; 80053; 80307; 81001; 81025; 85025; 96374; 96375; 99284; A9270; J1885; J2270; J2405; Q9967